=== PATIENT | male | born 1965 | race Caucasian/White ===

== ENCOUNTER 2018-11-19 09:28 | Emergency (ER) | payer SELFPAY ==
[~2018-11-19] VITALS: Ht 167.6 cm; Wt 75.7 kg
[~2018-11-19 09:28] MED LIST: CEPH250C16 PO; LACT10CA PO
[2018-11-19 09:30] VITALS: BP 151/111
--- NOTE | 2018-11-19 09:36 | NUR ---
PT AMB TO BED 9
--- NOTE | 2018-11-19 09:38 | NUR ---
53/M BIB C/O LOWER ABDOMEN REDNESS & SWOLLEN S/P SPIDER BITE X 4 DAYS. PATIENT STATES PAIN OF 4/10 AT THIS TIME; VSS; PATIENT POSITIONED FOR COMFORT; HOB ELEVATED; BEDRAILS UP X1; BED DOWN. ER MD MADE AWARE OF PT STATUS.
--- NOTE | 2018-11-19 09:46 | NUR ---
Dr. Browne evaluating patient at bedside.
[2018-11-19] MEDS ORDERED: CEPHALEXIN 500 MG CAP PO ONE (09:50)
[2018-11-19] MEDS ORDERED: SULFAMETH/TRIMETH DS 800/160MG 1 TAB PO ONE (09:50)
[2018-11-19 10:05] VITALS: BP 147/89
--- NOTE | 2018-11-19 10:06 | NUR ---
Patient discharged with v/s stable. Written and verbal after care instructions given and explained. Patient alert, oriented and verbalized understanding of instructions. Ambulatory with steady gait. All questions addressed prior to discharge. ID band removed. Patient advised to follow up with PMD. Rx of BACTRIM/ KEFLEX given. Patient educated on indication of medication including possible reaction and side effects. Opportunity to ask questions provided and answered.
== END 2018-11-19 10:03 | disposition home or self-care (01) ==
LOC: MED 09:28
DX: L03.311 Cellulitis of abdominal wall (principal); Z79.899 Other long term (current) drug therapy
CPT/HCPCS: 99283